=== PATIENT | female | born 1985 | race Caucasian/White ===

== ENCOUNTER 2016-08-14 10:29 | Day surgery (SDC) | payer OTHER ==
[~2016-08-14] VITALS: Ht 170.2 cm; Wt 104.5 kg
[~2016-08-14 10:29] MED LIST: ADVIL200 M2 PO; AMOXICILLIN875 MG PO; CLINDAMYCIN HC150 MG PO; CLINDAMYCIN HC300 MG PO; COLACE100 MG PO; ENDOCET 5-3251 EACH PO; FLONASE16 G1 BOTH NARES; IBUPROFEN800 MG PO; LORTAB 5-325 M1 EACH PO; METHADONE HCL40 MG PO; METHADONE PO; METHADOSE40 MG PO; NUVARING VAGIN1 EACH PO; NUVARING VAGIN1 EACH VG; PHENERGAN; PRENATAL TABLE1 EAC3 PO; PRENATAL1 EACH PO; TYLENOL EXTRA500 MG PO; VICODIN,LORT1 TABLET; ZOFRAN4 MG
[2016-08-14 11:18] VITALS: BP 97/50
[2016-08-14] MEDS ORDERED: IBUPROFEN800 MG PO (13:06)
[2016-08-14] MEDS ORDERED: PERCOCET 5/31 TABLET PO (13:06)
[2016-08-14 14:10] VITALS: BP 128/67
[2016-08-14 14:55] VITALS: BP 112/56
== END 2016-08-14 15:22 | disposition home or self-care (01) ==
LOC: SDC 10:29
PROC: 0U574ZZ Destruction of Bilateral Fallopian Tubes, Percutaneous Endoscopic Approach (ICD-10-PCS; principal; 2016-08-14)
DX: Z30.2 Encounter for sterilization (principal); K66.0 Peritoneal adhesions (postprocedural) (postinfection); N85.4 Malposition of uterus; E66.9 Obesity, unspecified; Z68.41 Body mass index [BMI] 40.0-44.9, adult; J30.2 Other seasonal allergic rhinitis; F17.210 Nicotine dependence, cigarettes, uncomplicated; Z88.8 Allergy status to other drugs, medicaments and biological substances; Z91.018 Allergy to other foods; Z80.0 Family history of malignant neoplasm of digestive organs; Z80.1 Family history of malignant neoplasm of trachea, bronchus and lung
CPT/HCPCS: J0330; J1100; J1170; J1885; J2250; J2405; J2710; J3010; J7120